=== PATIENT | female | born 1945 | race Caucasian/White ===

== ENCOUNTER 2017-12-08 01:53 | Outpatient (CLI) | payer OTHER, SELFPAY ==
[2017-12-08 11:27] LABS: Hemoglobin A1C 6.7 % (4.5-6.2)
[2017-12-08 12:24] LABS: CREATININE 1.34 mg/dL (0.55-1.02); Estimated GFR 38.77 (mL/min/1.73m2)
== END 2017-12-08 02:13 ==
PROVIDERS: PCP Family Medicine; Visit Provider Family Medicine
DX: E11.9 Type 2 diabetes mellitus without complications (principal)
CPT/HCPCS: 36415; 82565; 83036

== ENCOUNTER 2018-01-17 10:34 | Outpatient (CLI) | payer OTHER, SELFPAY ==
--- NOTE | 2018-01-17 10:30 | DI.RAD_ITS ---
SYMPTOMS/DIAGNOSIS: PAIN AND DEFORMITY TO RRF AND RMF RIGHT HAND: Three views. There is a mildly displaced and mildly comminuted fracture involving the posterior aspect of the base of the distal phalanx of the right ring finger. There is a nondisplaced fracture involving the volar aspect of the base of the middle phalanx of the right middle finger. There is soft tissue swelling seen of both the right middle and ring fingers. Mild degenerative changes are present throughout the right hand. No radiopaque foreign bodies are present in the soft tissues. IMPRESSION: Fractures involving the base of the distal phalanx of the right ring finger and the base of the middle phalanx of the right middle finger.
== END 2018-01-17 10:54 ==
PROVIDERS: PCP Family Medicine; Referring Provider Family Medicine; Visit Provider Student in an Organized Health Care Education/Training Program
DX: M79.644 Pain in right finger(s) (principal); M79.641 Pain in right hand; M20.011 Mallet finger of right finger(s); S62.634A Displaced fracture of distal phalanx of right ring finger, initial encounter for closed fracture; S62.662A Nondisplaced fracture of distal phalanx of right middle finger, initial encounter for closed fracture; W01.0XXA Fall on same level from slipping, tripping and stumbling without subsequent striking against object, initial encounter; I10 Essential (primary) hypertension; E11.319 Type 2 diabetes mellitus with unspecified diabetic retinopathy without macular edema; Z79.84 Long term (current) use of oral hypoglycemic drugs
CPT/HCPCS: 99203; 99214; 73130

== ENCOUNTER → 2018-02-21 09:03 | Outpatient (BNVA) | payer OTHER, SELFPAY | PROVIDERS: PCP Family Medicine; Referring Provider Family Medicine; Visit Provider Student in an Organized Health Care Education/Training Program | DX: M20.011 Mallet finger of right finger(s) (principal); S62.652D Nondisplaced fracture of middle phalanx of right middle finger, subsequent encounter for fracture with routine healing; W01.0XXD Fall on same level from slipping, tripping and stumbling without subsequent striking against object, subsequent encounter; S62.634D Displaced fracture of distal phalanx of right ring finger, subsequent encounter for fracture with routine healing; M67.442 Ganglion, left hand; I10 Essential (primary) hypertension; E11.319 Type 2 diabetes mellitus with unspecified diabetic retinopathy without macular edema; Z79.84 Long term (current) use of oral hypoglycemic drugs | CPT/HCPCS: 99214 ==

== ENCOUNTER 2018-06-07 01:33 | Outpatient (CLI) | payer OTHER, SELFPAY ==
[2018-06-07 11:19] LABS: Hemoglobin A1C 6.9 % (4.5-6.2)
== END 2018-06-07 01:53 ==
PROVIDERS: PCP Family Medicine; Visit Provider Family Medicine
DX: E11.9 Type 2 diabetes mellitus without complications (principal)
CPT/HCPCS: 36415; 83036

== ENCOUNTER 2018-08-08 00:17 | Outpatient (CLI) | payer OTHER, SELFPAY ==
--- NOTE | 2018-08-08 13:27 | DI.MAMMO_ITS ---
SYMPTOMS/DIAGNOSIS: SCREENING, Z12.31 MAMMOGRAMS: The breast tissue is composed of scattered fibroglandular densities. There is no dominant mass. There are no suspicious calcifications and there has been no significant interval change when compared with prior images. SUMMARY: No evidence of malignancy, category 1. Yearly screening mammography is recommended. Breast density category B. MQSA ASSESSMENT OF FINDINGS: Negative. Category 1. Patient will receive a letter notifying them of these results. BI-RADS category B. There are scattered areas of fibroglandular density.
== END 2018-08-08 00:37 ==
PROVIDERS: PCP Family Medicine; Visit Provider Family Medicine
DX: Z12.31 Encounter for screening mammogram for malignant neoplasm of breast (principal)
CPT/HCPCS: 77063; 77067

== ENCOUNTER 2018-12-04 02:44 | Outpatient (CLI) | payer OTHER, SELFPAY ==
[2018-12-04 11:04] LABS: CREATININE 1.49 mg/dL (0.55-1.02); Calculated LDL 68 mg/dL; Cholesterol 139 mg/dL (50-200); Estimated GFR 34.21 (mL/min/1.73m2); HDL Cholesterol 52 mg/dL (40-60); Potassium 4.9 mmol/L (3.5-5.1); Triglyceride 97 mg/dL (30-150)
== END 2018-12-04 03:04 ==
PROVIDERS: PCP Family Medicine; Visit Provider Family Medicine
DX: E11.9 Type 2 diabetes mellitus without complications (principal)
CPT/HCPCS: 36415; 80061; 82565; 83036; 84132

== ENCOUNTER 2019-12-12 01:19 | Outpatient (CLI) | payer OTHER, SELFPAY ==
[2019-12-12 12:31] LABS: Hemoglobin A1C 6.7 % (<5.7)
[2019-12-12 13:55] LABS: COMMENT (LAB VIEW ONLY) 85.32 mg/dL; Microalb ug/mg Crea 17.6 ug/mg Cr
== END 2019-12-12 01:39 ==
PROVIDERS: PCP Family Medicine; Visit Provider Family Medicine
DX: E11.9 Type 2 diabetes mellitus without complications (principal)
CPT/HCPCS: 36415; 82043; 82570; 83036

== ENCOUNTER 2020-06-12 00:39 | Outpatient (CLI) | payer OTHER, SELFPAY ==
[2020-06-12 13:11] LABS: Hemoglobin A1C 6.8 % (<5.7)
[2020-06-12 13:15] LABS: CREATININE 1.5 mg/dL (0.55-1.02); Calculated LDL 51 mg/dL (<100); Cholesterol 132 mg/dL (<200); Estimated GFR 33.76 (mL/min/1.73m2); HDL Cholesterol 56 mg/dL (40-60); Potassium 5.3 mmol/L (3.5-5.1); Triglyceride 127 mg/dL (<150)
== END 2020-06-12 00:40 | disposition home or self-care (01) ==
LOC: LOS 00:40
PROVIDERS: PCP Family Medicine; Visit Provider Family Medicine
DX: I10 Essential (primary) hypertension (principal); E78.5 Hyperlipidemia, unspecified; R73.9 Hyperglycemia, unspecified
CPT/HCPCS: 36415; 80061; 82565; 83036; 84132

== ENCOUNTER 2020-06-18 02:04 | Outpatient (CLI) | payer OTHER, SELFPAY | END 2020-06-18 02:05 | disposition home or self-care (01) | PROVIDERS: PCP Family Medicine; Visit Provider Family Medicine | DX: E87.5 Hyperkalemia (principal) | CPT/HCPCS: 36415; 84132 ==

== ENCOUNTER 2020-07-09 03:04 | Outpatient (CLI) | payer OTHER, SELFPAY ==
[2020-07-09 12:16] LABS: Potassium 5.1 mmol/L (3.5-5.1)
== END 2020-07-09 03:05 | disposition home or self-care (01) ==
LOC: LOS 03:04
PROVIDERS: PCP Family Medicine; Visit Provider Family Medicine
DX: I10 Essential (primary) hypertension (principal)
CPT/HCPCS: 36415; 84132

== ENCOUNTER 2020-08-17 03:07 | Outpatient (CLI) | payer OTHER, SELFPAY ==
[2020-08-17 12:44] LABS: Potassium 4.9 mmol/L (3.5-5.1)
== END 2020-08-17 03:08 | disposition home or self-care (01) ==
LOC: LOS 03:08
PROVIDERS: PCP Family Medicine; Visit Provider Family Medicine
DX: I10 Essential (primary) hypertension (principal)
CPT/HCPCS: 36415; 84132

== ENCOUNTER 2020-09-08 02:32 | Outpatient (CLI) | payer OTHER, SELFPAY ==
--- NOTE | 2020-09-08 15:45 | DI.MAMMO_ITS ---
Exam(s) MAMMO SCREENING EXAM: MAMMO SCREENING CLINICAL HISTORY: screening,Z12.39. TECHNIQUE: Bilateral full field digital CC and MLO mammographic images were obtained with 3D tomosyn thesis and utilizing computer aided detection (CAD). COMPARISON: Prior mammograms dating back to 2011, the most recent being August 2018. Family history. She has a sister with breast cancer. FINDINGS: There are no new spiculated masses nor malignant appearing microcalcification groups. However, in the left breast there is a subtle 7 x 6 millimeter nodule located 4 cm in from the nipple which has slightly increased in size compared to prior mammograms. Spot compression view possible u ltrasound recommend. There is no significant architectural distortion nor skin thickening-retraction. IMPRESSION: No radiographic evidence of malignancy in the right breast. In the left breast there is a subtle 7 x 6 millimeter asymmetric density-possible nodule located 4 cm in from the nipple probably 12 o'clock position, slightly more prominent in size than previous studi es. Recommend spot compression view and possible breast ultrasound. BI-RADS Category 0 - Assessment Incomplete: Need additional imaging evaluation Breast Density - Category B - Scattered areas of fibroglandular density Breast density Category C or D implies that the patient has dense breast tissue. Dense breast tissue can make it harder to find cancer on a mammogram. Dense breast tissue is also associated with an incr eased risk of breast cancer. This information about the result of the mammogram report was provided to the patient to raise their awareness. Use this report when you speak with the patient about their risks for breast cancer, which includes their family history. At that time, you may recommend additional screening tests (Ultrasoun d or MRI) as these tests may add significant information. A negative radiographic report should not delay biopsy if a dominant or clinically suspicious mass is present. Up to ten percent of cancers are not identified on mammography. A negative report may reinforce clinical impression. Adenosis and dense breasts may obscure an underlying neoplasm. False positive reports average 6 to 10%. Patient will receive a letter notifying them of these results.
== END 2020-09-08 02:52 ==
PROVIDERS: PCP Family Medicine; Visit Provider Family Medicine
DX: Z12.31 Encounter for screening mammogram for malignant neoplasm of breast (principal); R92.8 Other abnormal and inconclusive findings on diagnostic imaging of breast; Z80.3 Family history of malignant neoplasm of breast
CPT/HCPCS: 77063; 77067

== ENCOUNTER 2020-09-30 01:23 | Outpatient (CLI) | payer OTHER, SELFPAY ==
--- NOTE | 2020-09-30 | DI.MAMMO_ITS ---
Exam(s) MAMMO SCREEN CALL BACK UNI EXAM: MAMMO SCREEN CALL BACK UNI-LEFT CLINICAL HISTORY: F/U TO ABNL MAMMO, ASYMMETRIC DENSITY LT. TECHNIQUE: Unilateral spot mammographic images were obtained with 3D tomosynthesis and utilizing com puter aided detection (CAD). . Complete left breast Ultrasound was also performed, including all 4 quadrants, the retroareolar regio n, and the ipsilateral axilla. COMPARISON: Prior mammograms were reviewed. This additional imaging was performed due to findings described on the recent screening mammogram of 09/08/2020. FINDINGS: Additional mammographic views performed todaysomewhat equivocal for the presence nodule at this locat ion in left breast. Ultrasound performed today reveals no significant focal ultrasound findings.. IMPRESSION: Benign findings. Appropriate follow-up repeat left breast mammogram in 6 months, with earlier imaging if a self detect ed breast change is noted. The patient was informed of these findings and recommendations prior to leaving the department today. BI-RADS Category 3 - 6 month - Probably Benign Finding: Recommend follow-up mammography in 6 months Breast Density - Category B - Scattered areas of fibroglandular density Breast density Category C or D implies that the patient has dense breast tissue. Dense breast tissue can make it harder to find cancer on a mammogram. Dense breast tissue is also associated with an incr eased risk of breast cancer. This information about the result of the mammogram report was provided to the patient to raise their awareness. Use this report when you speak with the patient about their risks for breast cancer, which includes their family history. At that time, you may recommend additional screening tests (Ultrasoun d or MRI) as these tests may add significant information. A negative radiographic report should not delay biopsy if a dominant or clinically suspicious mass is present. Up to ten percent of cancers are not identified on mammography. A negative report may reinforce clinical impression. Adenosis and dense breasts may obscure an underlying neoplasm. False positive reports average 6 to 10%. Patient will receive a letter notifying them of these results.
--- NOTE | 2020-09-30 | DI.US_ITS ---
Exam(s) US BREAST LT COMPLETE EXAM: US BREAST LT COMPLETE CLINICAL HISTORY: F/U ABNL MAMMO, ASYMMETRIC DENSITY LT BREAST. TECHNIQUE: Complete ultrasound of the left breast was performed including all 4 quadrants, the retro areolar region, and the ipsilateral axilla. COMPARISON: Prior mammograms were reviewed. Today's diagnostic left breast mammogram was reviewed FINDINGS: Today's ultrasound is a negative study with no evidence of solid or significant cystic lesions in all 4 quadrants of the left breast nor in the immediate retroareolar region. This implies that the nodu lar density seen 4 cm in from the nipple is probably a benign intramammary lymph node. Left axilla is negative for significant adenopathy. IMPRESSION: Negative complete left breast ultrasound. This implies that the nodular density described on the rec ent mammogram is most probably a benign finding. Appropriate follow-up is repeat left breast Mammogram in 6 months, with earlier imaging if a self det ected breast changes noted.. BI-RADS Category 3 - 6 month - Probably Benign Finding: Recommend follow-up mammography in 6 months Breast Density - Category B - Scattered areas of fibroglandular density Breast density Category C or D implies that the patient has dense breast tissue. Dense breast tissue can make it harder to find cancer on a mammogram. Dense breast tissue is also associated with an incr eased risk of breast cancer. This information about the result of the mammogram report was provided to the patient to raise their awareness. Use this report when you speak with the patient about their risks for breast cancer, which includes their family history. At that time, you may recommend additional screening tests (Ultrasoun d or MRI) as these tests may add significant information. A negative radiographic report should not delay biopsy if a dominant or clinically suspicious mass is present. Up to ten percent of cancers are not identified on mammography. A negative report may reinforce clinical impression. Adenosis and dense breasts may obscure an underlying neoplasm. False positive reports average 6 to 10%. Patient will receive a letter notifying them of these results.
== END 2020-09-30 01:43 ==
PROVIDERS: PCP Family Medicine; Visit Provider Family Medicine
DX: R92.8 Other abnormal and inconclusive findings on diagnostic imaging of breast (principal); N64.89 Other specified disorders of breast
CPT/HCPCS: 76642; 77063; 77067

== ENCOUNTER 2021-03-05 04:37 | Outpatient (CLI) | payer MEDICARE, SELFPAY ==
[2021-03-05 12:45] LABS: CREATININE 1.3 mg/dL (0.55-1.02); Estimated GFR 39.82 (mL/min/1.73m2); Potassium 4.6 mmol/L (3.5-5.1)
== END 2021-03-05 04:38 | disposition home or self-care (01) ==
LOC: LBO 04:37
PROVIDERS: PCP Family Medicine; Visit Provider Family Medicine
DX: I10 Essential (primary) hypertension (principal)
CPT/HCPCS: 36415; 82565; 84132

== ENCOUNTER 2021-04-05 01:01 | Outpatient (CLI) | payer MEDICARE, SELFPAY ==
--- NOTE | 2021-04-05 07:15 | DI.MAMMO_ITS ---
Exam(s) MAMMO DIAGNOSTIC UNI EXAM: MAMMO DIAGNOSTIC UNI CLINICAL HISTORY: f/u abnl mammo, r92.8. TECHNIQUE: Craniocaudal and mediolateral oblique Full Field Digital Mammography views of the breast with Computer Aided Diagnosis followed by Tomosynthesis. COMPARISON: Mammograms from 25/01 through 30 September 2020 FINDINGS: Mammography/Tomosynthesis: Masses/Architectural Distortion: None seen. Decreased prominence of nodule in the superior, central l eft breast. This has been present on multiple exams and likely represents a lymph node. Microcalcifictions: No suspicious pleomorphic-type are seen. Skin Thickening/Nipple Retraction: None. IMPRESSION: 1. No evidence of malignancy is noted. 2. Unless there is more urgent need, follow-up screening mammography is recommended, as per [place] [employer] guidelines. BI-RADS Category 1 - Negative Breast Density - Category B - Scattered areas of fibroglandular density A negative radiographic report should not delay biopsy if a dominant or clinically suspicious mass is present. Up to ten percent of cancers are not identified on mammography. A negative report may reinforce clinical impression. Adenosis and dense breasts may obscure an underlying neoplasm. False positive reports average 6 to 10%. Patient will receive a letter notifying them of these results.
== END 2021-04-05 01:21 ==
PROVIDERS: PCP Family Medicine; Visit Provider Family Medicine
DX: R92.8 Other abnormal and inconclusive findings on diagnostic imaging of breast (principal); N60.82 Other benign mammary dysplasias of left breast
CPT/HCPCS: 77061; 77065; G0279

== ENCOUNTER 2022-03-01 13:08 | Outpatient (REF) | payer MEDICARE, SELFPAY ==
[2022-03-01 13:00] LABS: Microalb ug/mg Crea 21.8 ug/mg Cr
== END 2022-03-01 13:09 | disposition home or self-care (01) ==
LOC: LBN 13:08
PROVIDERS: PCP Family Medicine; Visit Provider Family Medicine
DX: E11.9 Type 2 diabetes mellitus without complications (principal)
CPT/HCPCS: 82043; 82570

== ENCOUNTER 2022-08-30 09:49 | Outpatient (CLI) | payer MEDICARE, SELFPAY ==
[2022-08-30 13:07] LABS: CREATININE 1.5 mg/dL (0.55-1.02); Calculated LDL 66 mg/dL (<100); Cholesterol 150 mg/dL (<200); Estimated GFR 35.45 (mL/min/1.73m2); HDL Cholesterol 59 mg/dL (40-60); Potassium 4.2 mmol/L (3.5-5.1); Triglyceride 129 mg/dL (<150)
== END 2022-08-30 09:50 | disposition home or self-care (01) ==
LOC: LOS 09:50
PROVIDERS: PCP Family Medicine; Referring Provider Family Medicine; Visit Provider Family Medicine
DX: I10 Essential (primary) hypertension (principal); E78.5 Hyperlipidemia, unspecified; E11.9 Type 2 diabetes mellitus without complications
CPT/HCPCS: 36415; 80061; 82565; 84132

== ENCOUNTER 2022-09-05 01:08 | Outpatient (CLI) | payer MEDICARE, SELFPAY ==
--- NOTE | 2022-09-05 12:59 | DI.MAMMO_ITS ---
Exam(s) MAMMO SCREENING EXAM: MAMMO SCREENING CLINICAL HISTORY: screening, Z12.39. TECHNIQUE: Bilateral full field digital CC and MLO mammographic images were obtained with 3D tomosyn thesis and utilizing computer aided detection (CAD). COMPARISON: Prior mammograms were reviewed. FINDINGS: There has been no significant change in the appearance and distribution of the fibroglandular tissue. Asymmetric density in left breast is unchanged from prior studies. There are no new spiculated masses nor malignant appearing microcalcification groups. There is no significant architectural distortion nor skin thickening-retraction. IMPRESSION: No radiographic evidence of malignancy. BI-RADS Category 1 - Negative Breast Density - Category B - Scattered areas of fibroglandular density Breast density Category C or D implies that the patient has dense breast tissue. Dense breast tissue can make it harder to find cancer on a mammogram. Dense breast tissue is also associated with an incr eased risk of breast cancer. This information about the result of the mammogram report was provided to the patient to raise their awareness. Use this report when you speak with the patient about their risks for breast cancer, which includes their family history. At that time, you may recommend additional screening tests (Ultrasoun d or MRI) as these tests may add significant information. A negative radiographic report should not delay biopsy if a dominant or clinically suspicious mass is present. Up to ten percent of cancers are not identified on mammography. A negative report may reinforce clinical impression. Adenosis and dense breasts may obscure an underlying neoplasm. False positive reports average 6 to 10%. Patient will receive a letter notifying them of these results.
== END 2022-09-05 01:28 ==
LOC: DI 01:08
PROVIDERS: PCP Family Medicine; Visit Provider Family Medicine
DX: Z12.31 Encounter for screening mammogram for malignant neoplasm of breast (principal)
CPT/HCPCS: 77063; 77067

== ENCOUNTER → 2023-05-25 13:25 | Outpatient (BNVA) | payer MEDICARE, SELFPAY | PROVIDERS: PCP Family Medicine; Referring Provider Family Medicine; Visit Provider Physical Therapy Assistant | DX: Z12.11 Encounter for screening for malignant neoplasm of colon (principal); R19.5 Other fecal abnormalities ==

== ENCOUNTER 2023-09-12 09:41 | Outpatient (CLI) | payer MEDICARE, SELFPAY ==
[2023-09-12 13:02] LABS: CREATININE 1.5 mg/dL (0.55-1.02); Calculated LDL 74 mg/dL (<100); Cholesterol 162 mg/dL (<200); Estimated GFR 35.23 (mL/min/1.73m2); HDL Cholesterol 67 mg/dL (40-60); Potassium 4.6 mmol/L (3.5-5.1); Triglyceride 107 mg/dL (<150)
[2023-09-12 18:46] LABS: Hepatitis C Ab w Rflx HCV PCR Negative (Negative)
[2023-09-12 18:52] LABS: HBs Antibody, Quant <3.1 mIU/mL (See Note); Hep B Surface Ab Negative (See Note); Hepatitis B Core Antibody Negative (Negative); Hepatitis B Surface Antigen Negative (Negative)
[2023-09-12 19:14] LABS: HIV-1/2 Ag & Ab Screen Negative (Negative)
== END 2023-09-12 09:42 | disposition home or self-care (01) ==
LOC: LOS 09:41
PROVIDERS: PCP Family Medicine; Referring Provider Family Medicine; Visit Provider Family Medicine
DX: I10 Essential (primary) hypertension (principal); Z00.00 Encounter for general adult medical examination without abnormal findings; E78.5 Hyperlipidemia, unspecified; Z11.59 Encounter for screening for other viral diseases
CPT/HCPCS: 36415; 80061; 86704; 86706; 86803; 87340; 87389; 82565; 84132

== ENCOUNTER 2023-09-15 00:19 | Outpatient (CLI) | payer MEDICARE, SELFPAY ==
--- OUTSIDE RECORDS SUMMARY | 2023-09-15 00:21 | XMS_ITS | Encounter Summary ---
Author Organization [facility] Address [address] [place] [address] Care Team Providers Care Supervisor Slate Splitting Name Role Phone Unavailable Primary Care Provider Unavailabl e Encounter Details Date Type Department Care Team (Latest Contact Info) Description 09/09/2013 8:18 EDT - 09/09/2013 23:59 EDT Hospital Encounter [address] [address] Unknown, Provider, Discharge Disposition: Home or Self Care Social History Tobacco Use Types Packs/Day Years Used Date Smoking Tobacco: Never Assessed Sex and Gender Information Value Date Recorded Sex Assigned at Not on file Gender Identity Not on file Sexual Orientation Not on file documented as of this encounter Discharge Disposition Disposition Code Departure Means Destination Home or Self Assisted documented in this encounter Plan of Treatment Not on file documented as of this encounter Visit Diagnoses Not on filedocumented in this encounter
--- OUTSIDE RECORDS SUMMARY | 2023-09-15 00:21 | XMS_ITS | Encounter Summary ---
Author Organization [facility] Address [address] [place] [address] Care Team Providers Care Application Counselor Name Role Phone Buzz John MD Primary Care Provider [phone] Encounter Details Date Type Department Care Team (Late st Contact Info) Description 09/12/2023 Lab Requisition [facility] Pathology & Laboratory Medicine - [address] [address] Outr Resulting Lab, Provider Social History Tobacco Use Types Packs/Day Years Used Date Smoking Tobacco: Never Assessed Sex and Gender Information Value Date Recorded Sex Assigned at Not on file Gender Identity Not on file Sexual Orientation Not on file documented as of this encounter Plan of Treatment Not on file documented as of this encounter Procedures Procedure Name Priority Date/Time Associated Diagnosis Comments HEPATITIS C AB W REFLEX TO HCV RNA BY PCR Routine 09/12/2023 9:57 EDT HEPATITIS B PROFILE Routine 09/12/2023 9:57 EDT documented in this encounter Results * HEPATITIS C AB W REFLEX TO HCV RNA BY PCR (09/12/2023 9:57 EDT) Hep C Antibody Negative Negative 09/12/2023 18:42 EDT [facility] Blood VENOUS BLOOD / Unknown 09/12/2023 9:57 EDT 09/12/2023 16:56 EDT Provider Outr Resulting Lab CHEMISTRY & BLOOD GAS ORDERABLES [facility] [address] [place] [address] * HEPATITIS B PROFILE (09/12/2023 9:57 EDT) Hep B Surface Ag Negative Negative 09/12/19 18:48 EDT [facility] Hep B Surface Ab, Quantitative <3.1 See Note mIU/mL 09/12/2023 18:48 EDT [facility] Comment: Reference Range for Hep B Surface Ab, Quant: Positive: >= 10.0 mIU/mL Negative: ??< 10.0 mIU/mL Patient is presumed to not be immune to infection with Hepatitis B Virus. Hep B Surface Ab, Qualitative Negative See Note 09/12/2023 18:48 EDT [facility] Comment: Reference Range for Hep B Surface Ab, Qual: Unvaccinated: ??Negative Vaccinated: ??Positive Hepatitis B Core Ab, Total Negative Negative 09/12/2023 18:48 EDT [facility] Blood VENOUS BLOOD / Unknown 09/12/2023 9:57 EDT 09/12/2023 16:56 EDT Provider Outr Resulting Lab CHEMISTRY & BLOOD GAS ORDERABLES [facility] [address] [place] [address] documented in this encounter Visit Diagnoses Not on filedocumented in this encounter Care Teams Application Counselor Relationship Specialty Start Date End Date Buzz John MD [address] [place] [address] PCP - General 08/13/15 documented as of this encounter
--- OUTSIDE RECORDS SUMMARY | 2023-09-15 00:21 | XMS_ITS | Encounter Summary ---
Author Organization [facility] Address [address] [place] [address] Care Team Providers Care Agricultural Consultant Name Role Phone Unknown, Provider Primary Care Provider Encounter Details Date Type Department Care Team (Latest Contact Info) Description 08/07/2015 9:40 EDT - 08/07/2015 23:59 EDT Hospital Encounter [address] [address] Unknown, Provider, Discharge Disposition: Home or Self Care Social History Tobacco Use Types Packs/Day Years Used Date Smoking Tobacco: Never Assessed Sex and Gender Information Value Date Recorded Sex Assigned at Not on file Gender Identity Not on file Sexual Orientation Not on file documented as of this encounter Discharge Disposition Disposition Code Departure Means Destination Home or Self Nursing Home documented in this encounter Plan of Treatment Not on file documented as of this encounter Visit Diagnoses Not on filedocumented in this encounter Care Teams Agricultural Consultant Relationship Specialty Start Date End Date Unknown, Provider, PCP - General 09/12/13 08/12/15 documented as of this encounter
--- OUTSIDE RECORDS SUMMARY | 2023-09-15 00:21 | XMS_ITS | Encounter Summary ---
Author Organization [facility] Address [address] [place] [address] Care Team Providers Care Library Circulation Technician Name Role Phone Buzz John MD Primary Care Provider [phone] Encounter Details Date Type Department Care Team (Late st Contact Info) Description 09/12/2023 Lab Requisition [facility] Pathology & Laboratory Medicine - [address] [id number] Outr Resulting Lab, Provider Social History Tobacco [...] Procedure Name Priority Date/Time Associated Diagnosis Comments HIV 1/2 ANTIGEN AND ANTIBODY, 4TH GENERATION Routine 09/12/2023 9:57 EDT documented in this encounter Results * HIV 1/2 ANTIGEN AND ANTIBODY, 4TH GENERATION (09/12/2023 9:57 EDT) HIV 1 and 2 Antibody/p24 Antigen, 4th Generation Negative Negative 09/12/2023 19:09 EDT [facility] Comment:If acute HIV-1 infec tion is suspected in a high risk patient, submit plasma specimen for HIV-1 RNA quantitation test. Blood VENOUS BLOOD / Unknown 09/12/2023 9:57 EDT 09/12/2023 16:56 EDT Narrative [facility] - 09/12/2023 19:09 EDT Fourth Generation assay performed on the Siemens Centaur XPT. Provider Outr Resulting Lab IMMUNOLOGY A ND SEROLOGY ORDERABLES [facility] [address] [place] [address] documented in this encounter Visit Diagnoses Not on filedocumented in this encounter Care Teams Library Circulation Technician Relationship Specialty Start Date End Date Buzz John MD [address] [place] [id number] PCP - General 08/13/15 documented as of this encounter
--- OUTSIDE RECORDS SUMMARY | 2023-09-15 00:21 | XMS_ITS | Clinical Summary ---
Author Organization [facility] Address [address] [place] [address] Care Team Providers Care Manager Acquisition Name Role Phone Buzz John MD Primary Care Provider [phone] Encounters Date Type Department Care Team Description 09/12/[address] [facility] Pathology & Laboratory [address] [address] Outr Resulting Lab, Provider 09/12/[address] [facility] Pathology & Laboratory [address] [address] Outr Resulting Lab, Provider from Last 3 Months Social History Tobacco Use Types Packs/Day Years Used Date Smoking Tobacco: Never Assessed Sex and Gender Information Value Date Recorded Sex Assigned at Not on file Gender Identity Not on file Sexual Orientation Not on file Plan of Treatment Health Maintenance Due Date Last Done Comments RSV Immunization ( o r 60+ Years) (1 - 1-dose 60+ series) 2004 Fall Risk Screening 2009 COVID-19 Vaccine (2022-24 season) 2022 Hepatitis C Screen Completed 09/12/2023 Procedures Procedure Name Priority Date/Time Associated Diagnosis Comments HEPATITIS C AB W REFLEX TO HCV RNA BY PCR Routine 09/12/2023 9:57 EDT HEPATITIS B PROFILE Routine 09/12/2023 9 :57 EDT HIV 1/2 ANTIGEN AND ANTIBODY, 4TH GENERATION Routine 09/12/2023 9:57 EDT from Last 3 Months Results * HEPATITIS C AB W REFLEX TO HCV RNA BY PCR (09/12/2023 9:57 EDT) Hep C Antibody Negative Negative 09/12/2023 18:42 EDT [facility] Blood VENOUS BLOOD / Unknown 09/12/2023 9:57 EDT 09/12/2023 16:56 EDT Provider Outr Resulting Lab CHEMISTRY & BLOOD GAS ORDERABLES Performing Organization Address City/[facility]/ZIP Co de Phone Number [facility] [address] [place] [address] * HEPATITIS B PROFILE (09/12/2023 9:57 EDT) Pathologist [facility] [place] Hep B Surface Ag Negative Negative 09/12/19 18:48 EDT [facility] Hep B Surface Ab, Quantitative <3.1 See Note mIU/mL 09/12/2023 18:48 EDT [facility] Comment: Reference Range for Hep B Surface Ab, Quant: Positive: >= 10.0 mIU/mL Negative: ??< 10.0 mIU/mL Patient is presumed to not be immune to infection with Hepatitis B Virus. Hep B Surface Ab, Qualitative Negative See Note 09/12/2023 18:48 EDT [facility] Comment: Reference Range for Hep B Surface Ab, Qual: Unvaccinated: ??Negative Vaccinated: ??Positive Hepatitis B Core Ab, Total Negative Negative 09/12/2023 18:48 EDT [facility] Blood VENOUS BLOOD / Unknown 09/12/2023 9:57 EDT 09/12/2023 16:56 EDT Provider Outr Resulting Lab CHEMISTRY & BLOOD GAS ORDERABLES Performing Organization Address [facility]/ZIP Co de Phone Number [facility] [address] [place] [address] * HIV 1/2 ANTIGEN AND ANTIBODY, 4TH GENERATION (09/12/2023 9:57 EDT) Pathologist [facility] [place] HIV 1 and 2 Antibody/p24 Antigen, 4th Generation Negative Negative 09/12/2023 19:09 EDT [facility] Comment:If acute HIV-1 infec tion is suspected in a high risk patient, submit plasma specimen for HIV-1 RNA quantitation test. Blood VENOUS BLOOD / Unknown 09/12/2023 9:57 EDT 09/12/2023 16:56 EDT Narrative [facility] - 09/12/2023 19:09 EDT Fourth Generation assay performed on the Siemens Centaur XPT. Provider Outr Resulting Lab IMMUNOLOGY A ND SEROLOGY ORDERABLES [facility] [address] [place] [address] from Last 3 Months Care Teams Manager Acquisition Relationship Specialty Start Date End Date Buzz John MD [address] [place], [place] [id number] PCP - General 08/13/15
--- OUTSIDE RECORDS SUMMARY | 2023-09-15 00:21 | XMS_ITS | Encounter Summary ---
Author Organization [facility] Address [address] [place] [address] Care Team Providers Care Bss Solution Architect Name Role Phone Unavailable Primary Care Provider Unavailabl e Encounter Details Date Type Department Care Team (Late st Contact Info) Description 09/09/2013 Results Only [facility] ([facility]) [address] [place] [address] [id number] Tarik Hoffmann MD [address] [place] [address] Social History Tobacco Use Types Packs/Day Years Used Date Smoking Tobacco: Never Assessed Sex and Gender Information Value Date Recorded Sex Assigned at Not on file Gender Identity Not on file Sexual Orientation Not on file documented as of this encounter Plan of Treatment Not on file documented as of this encounter Procedures Procedure Name Priority Date/Time Associated Diagnosis Comments SURGICAL PATHOLOGY Routine 09/09/2013 18 :28 EDT documented in this encounter Results * SURGICAL PATHOLOGY (09/09/2013 18:28 EDT) Pathology Report: SURGICAL PATHOLOGY REPORT Reports generated via electronic interface contain original data; however they are lacking the format of the original report. Caution should be taken when reading/interpreting unformatted reports. Name: ? SANDEEP BARTH ? Accession #: ? [id number] ? : ? 1945 (Age: 68) ??F ? Collect Date: ? 09/09/2013 ? Location: ? [facility] ? Receive Date: ? 09/09/2013 ? Provider: TARIK HOFFMANN MD Copy to: CHUN YING MD ? Final Pathologic Diagnosis: SKIN OF SCALP, FRONTAL, EXCISION: - Follicular cyst, isthmic/catagen type with reactive changes. See comment. Comment: ? This case was shown in intradepartmental consultation. Document reviewed and electronically signed by: ALBINA ARREDONDO MD Report ??Date: 09/13/2013 14:45 By the signature above, the attending physician certifies that he/she has personally conducted a gross and/or microscopic examination of the described specimens and rendered or confirmed the above diagnosis. Specimen(s) Received: Frontal scalp Clinical History: Cyst present 30-40 yrs Gross Description: ? Received in formalin labelled with proper patient identification (initials M, K) and frontal scalp lesion is a bosselated ruiz walled cystic structure (1.3 x 1.3 x 0.6 cm) with a small amount of attached fibrofatty tissue and an overlying ellipse of nuñez-white skin (1.7 x 0.4 cm). The cyst contains a firm nuñez granular material, and the inner lining is white and wrinkled with a wall thickness measuring less than 0.1 cm. The margins are inked. ??Serially sectioned and submitted as 1 and 2 central sections and 3 tips, reverse en face. Margarita Montez 09/10/2013 08:33 AM End of Report GRICELDA SINGH 09/09/2013 18:2 8 EDT 09/09/2013 18:28 EDT Tarik Hoffmann MD PATHOLOGY ORDERABLE S GRICELDA SINGH [address] [place] [address] documented in this encounter Visit Diagnoses Not on filedocumented in this encounter
--- OUTSIDE RECORDS SUMMARY | 2023-09-15 00:21 | XMS_ITS | Referral Summary ---
Author Organization [facility] Address [address] [place] [address] Care Team Providers Care Ocean Freight Forwarder Name Role Phone Buzz John MD Primary Care Provider [phone] Encounters Date Type Department Care Team Description 09/12/2023 Lab Requisition [facility] Pathology & Laboratory [address] [address] Outr Resulting Lab, Provider 09/12/2023 Lab Requisition [facility] Pathology & Laboratory [facility] [address] [place] [address] Outr Resulting Lab, Provider from Last 3 Months Social History Tobacco Use Types Packs/Day Years Used Date Smoking Tobacco: Never Assessed Sex and Gender Information Value Date Recorded Sex Assigned at Not on file Gender Identity Not on file Sexual Orientation Not on file Plan of Treatment Not on file Procedures Procedure Name Priority Date/Time Associated Diagnosis [...] C Antibody Negative Negative 09/12/2023 18:42 EDT [facility] Blood VENOUS BLOOD / Unknown 09/12/2023 9:57 EDT 09/12/2023 16:56 EDT Provider Outr Resulting Lab CHEMISTRY & BLOOD GAS ORDERABLES Performing Organization Address [facility] Co de Phone Number [facility] [address] [place] [address] * HEPATITIS B PROFILE (09/12/2023 9:57 EDT) Hep B Surface Ag Negative Negative 09/12/19 18:48 EDT [facility] Hep B Surface Ab, Quantitative <3.1 See Note mIU/mL 09/12/2023 18:48 EDT [facility] Comment: Reference Range for Hep B Surface Ab, Quant: Positive: >= 10.0 mIU/mL Negative: ??< 10.0 mIU/mL Patient is presumed to not be immune to infection with Hepatitis B Virus. Hep B Surface Ab, Qualitative Negative See Note 09/12/2023 18:48 EDT [facility] Comment: Reference Range for Hep B Surface Ab, Qual: Unvaccinated: ??Negative Vaccinated: ??Positive Hepatitis B Core Ab, Total Negative Negative 09/12/2023 18:48 EDT [facility] Blood VENOUS BLOOD / Unknown 09/12/2023 9:57 EDT 09/12/2023 16:56 EDT Provider Outr Resulting Lab CHEMISTRY & BLOOD GAS ORDERABLES Performing Organization Address [facility] Co de Phone Number [facility] [address] [place] [address] * HIV 1/2 ANTIGEN AND ANTIBODY, 4TH GENERATION (09/12/2023 9:57 EDT) HIV 1 and 2 Antibody/p24 Antigen, 4th Generation Negative Negative 09/12/2023 19:09 EDT [facility] Comment:If acute HIV-1 infec tion is suspected in a high risk patient, submit plasma specimen for HIV-1 RNA quantitation test. Blood VENOUS BLOOD / Unknown 09/12/2023 9:57 EDT 09/12/2023 16:56 EDT Narrative [facility] - 09/12/2023 19:09 EDT Fourth Generation assay performed on the Pump [employer] XPT. Provider Outr Resulting Lab IMMUNOLOGY A ND SEROLOGY ORDERABLES [facility] [address] [place] [address] from Last 3 Months Care Teams Ocean Freight Forwarder Relationship Specialty Start Date End Date Buzz John MD [address] [place], [place] [id number] PCP - General 08/13/15
--- OUTSIDE RECORDS SUMMARY | 2023-09-15 00:21 | XMS_ITS | Encounter Summary ---
Author Organization [facility] Address [address] [place] [address] Care Team Providers Care Ice Cream Shop Associate Name Role Phone Unknown, Provider Primary Care Provider Encounter Details Date Type Department Care Team (Late st Contact Info) Description 08/07/2015 Results Only [facility] [phone] Ac Dyer MD [address] [place] [address] [place] [id number] Social History Tobacco Use Types Packs/Day Years Used Date Smoking Tobacco: Never Assessed Sex and Gender Information Value Date Recorded Sex Assigned at Not on file Gender Identity Not on file Sexual Orientation Not on file documented as of this encounter Plan of Treatment Not on file documented as of this encounter Procedures Procedure Name Priority Date/Time Associated Diagnosis Comments SURGICAL PATHOLOGY Routine 08/07/2015 7:10 EDT documented in this encounter Results * SURGICAL PATHOLOGY (08/07/2015 7:10 EDT) Pathology Report: SURGICAL PATHOLOGY REPORT Reports generated via electronic interface contain original data; however they are lacking the format of the original report. Caution should be taken when reading/interpret ing unformatted reports. Name: ? SANDEEP MATHIAS ? Accession #: ? [id number] ? : ? 1945 (Age: 70) ??F ? Collect Date: ? 08/07/2015 ? Location: ? [facility] ? Receive Date: ? 08/08/2015 ? Provider: AC DYER MD Copy to: ILEANA PATEL MD ? Final Pathologic Diagnosis: SKIN OF FACE, LEFT, JUST ANTERIOR TO EAR, EXCISIONAL BIOPSY: - Seborrheic keratosis, irritated and inflamed. ?? - Lesion does not extend to margins of excision specimen. ?? Microscopic Description: Orthohyperkeratos is and focal parakeratosis thicken the stratum corneum. ??There is formation of horn pseudocysts. ??The epidermis is hyperplastic with acanthosis and papillomatosis. ??The keratinocytes have a basaloid appearance with squamous eddies in many areas. ??Within the dermis, there is a moderately dense lymphohistiocytic infiltrate. ??The infiltrate extends into the epidermis with concomitant vacuolar change and keratinocyte necrosis. ??(Dr. Cohen)/n Document reviewed and electronically signed by: JOLIE COHEN MD Report ??Date: 08/11/2015 17:23 By the signature above, the attending physician certifies that he/she has personally conducted a gross and/or microscopic examination of the described specimens and rendered or confirmed the above diagnosis. Specimen(s) Received: Lesion left face, just ant to ear, suture superior corner Clinical History: Left face lesion, just ant to ear Gross Description: ? Received in formalin labelled with proper patient identification (initials M, K) and left face lesion, suture superior corner is an oriented elliptical excision of nuñez-pink hairbearing skin with a suture designating the superior corner (1.3 cm from superior to inferior, 0.7 cm from medial to lateral, and is excised to a depth of 0.3 cm). There is a circular ill defined nuñez-pink verrucoid papule that measures 0.5 x 0.4 x 0.1 cm. The medial aspect is blue inked and the lateral aspect is black inked. The specimen is serially sectioned from superior to inferior and is entirely submitted as follows: BLOCK SAMPSON 1- ??superior tip, reverse en face 2- ??central sections 3- ??inferior tip, reverse en face Dr. Ramirez 08/08/2015 11:25 AM End of Report [facility] 08/07/2015 7:10 EDT 08/08/2015 7:10 EDT Ac Dyer MD PATHOLOGY ORDERA KARLA [facility] [address] [place] [address] documented in this encounter Visit Diagnoses Not on filedocumented in this encounter Care Teams Ice Cream Shop Associate Relationship Specialty Start Date End Date Unknown, Provider, PCP - General 09/12/13 08/12/15 documented as of this encounter
--- NOTE | 2023-09-15 08:12 | DI.MAMMO_ITS ---
Exam(s) MAMMO SCREENING EXAM: MAMMO SCREENING CLINICAL HISTORY: screening,z12.39. TECHNIQUE: Bilateral full field digital CC and MLO mammographic images were obtained with 3D tomosyn thesis and utilizing computer aided detection (CAD). COMPARISON: Prior mammograms were reviewed. FINDINGS: There has been no significant change in the appearance and distribution of the fibroglandular tissue. Asymmetric density anterior left breast is unchanged from prior mammograms dating back to 2015. Benign-appearing microcalcifications again noted in both breasts. There are no new spiculated masses nor new malignant appearing microcalcification groups. There is no significant architectural distortion nor skin thickening-retraction. IMPRESSION: Stable benign findings. No radiographic evidence of malignancy. BI-RADS Category 2 - Benign Findings Breast Density - Category B - Scattered areas of fibroglandular density Breast density Category C or D implies that the patient has dense breast tissue. Dense breast tissue can make it harder to find cancer on a mammogram. Dense breast tissue is also associated with an incr eased risk of breast cancer. This information about the result of the mammogram report was provided to the patient to raise their awareness. Use this report when you speak with the patient about their risks for breast cancer, which includes their family history. At that time, you may recommend additional screening tests (Ultrasoun d or MRI) as these tests may add significant information. A negative radiographic report should not delay biopsy if a dominant or clinically suspicious mass is present. Up to ten percent of cancers are not identified on mammography. A negative report may reinforce clinical impression. Adenosis and dense breasts may obscure an underlying neoplasm. False positive reports average 6 to 10%. Patient will receive a letter notifying them of these results.
== END 2023-09-15 00:39 ==
LOC: DI 00:19
PROVIDERS: PCP Family Medicine; Visit Provider Family Medicine
DX: Z12.31 Encounter for screening mammogram for malignant neoplasm of breast (principal)
CPT/HCPCS: 77063; 77067

== ENCOUNTER 2023-12-04 21:44 | Outpatient (REF) | payer MEDICARE, SELFPAY ==
[2023-12-04 19:32] LABS: Bilirubin Negative (Negative); Blood Trace-intact (Negative); Clarity Cloudy (Clear); Glucose Negative (Negative); Ketones Negative (Negative); Leukocyte Esterase Moderate (Negative); Nitrite Positive (Negative); Urobilinogen 0.2 mg/dL (Up to 0.2)
[2023-12-04 19:44] LABS: C & S Indicated? Yes; WBC >50 HPF (0-5)
== END 2023-12-04 21:45 | disposition home or self-care (01) ==
LOC: LBN 21:44
PROVIDERS: Nurse Practitioner Family; PCP Family Medicine; Visit Provider Family Medicine
DX: N39.0 Urinary tract infection, site not specified (principal)
CPT/HCPCS: 87077; 81003; 81015; 87086; 87186

== ENCOUNTER 2024-04-01 21:21 | Observation (INO) | payer MEDICARE, SELFPAY ==
[2024-04-01] VITALS (13 sets, daily range): BP systolic 137; BP diastolic 70; PULSE 58–79; RESP 5–29; TEMP 35.7; O2SAT 97–100
--- NOTE | 2024-04-01 21:15 | RT.EKG_ITS ---
APPROVED REPORT Exam: Resting ECG Reason for Exam: weak, dizzy Patient Location: E HR:68 bpm ECG Measurements Heart Rate 68 AXIS NH 145 P 4 QRSd 72 QRS 37 QT 407 T 15 QTc 433 Conclusion Sinus rhythm, rate 68 No interval abnormalities No STEMI T wave inversion V1, no priors available for comparison
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
[2024-04-01 22:30] LABS: Abs Immature Grans 0.02 10^3/uL (0.0-0.06); Absolute Basophil Count 0.02 10^3/uL (0.0-0.2); Absolute Eosinophil Count 0.11 10^3/uL (0.0-0.7); Absolute Lymphocyte Count 2.01 10^3/uL (1.2-3.4); Absolute Monocyte Count 0.47 10^3/uL (0.1-0.8); Absolute Neutrophil Count 5.34 10^3/uL (1.2-6.7); Basophils % 0.3 %; Eosinophils % 1.4 %; HCT 35.5 % (36.0-46.0); HGB 11.8 g/dL (11.2-15.7); Immature Grans % 0.3 %; Lymphocytes % 25.2 %; MCH 32.1 pg (27.0-33.0); MCHC 33.2 % (32.0-36.0); MCV 97 fL (80-95); MPV 9.4 fL (8.0-11.0); Monocytes % 5.9 %; Neutrophils % 66.9 %; Platelet Count 225 10^3/uL (130-400); RBC 3.68 10^6/uL (3.93-5.22); RDW 12.9 % (11.7-14.6); RDW-SD 45.8 fL; WBC 7.97 10^3/uL (4.4-10.8)
[2024-04-01] MEDS: Ondansetron 4 MG/2 ML VIAL IVP (22:30)
[2024-04-01 22:41] LABS: Prothrombin Time 9.8 sec (9.1-11.1)
[2024-04-01] MEDS: Normal Saline - Diluent 50 ML VIAL IJ (22:46)
[2024-04-01] MEDS: Omnipaque 350 MG/ML 100 ML BTL 70 ML IJ (22:48)
[2024-04-01 22:53] LABS: ALT 20 U/L (14-59); AST 22 U/L (15-37); Alkaline Phosphatase 75 U/L (46-116); BUN 35 mg/dL (7-18); CREATININE 1.8 mg/dL (0.55-1.02); Calcium 9.7 mg/dL (8.5-10.1); Chloride 106 mmol/L (98-107); Estimated GFR 28.31 (mL/min/1.73m2); Glucose 146 mg/dL (74-106); Magnesium 1.6 mg/dL (1.8-2.4); Potassium 4.4 mmol/L (3.5-5.1); Sodium 142 mmol/L (136-145); Total Protein 7.6 g/dL (6.4-8.2); Troponin I 7 ng/L (<or=51)
--- NOTE | 2024-04-01 23:07 | DI.CT_ITS ---
Exam(s) CT BRAIN NECK CTA EXAM: CT BRAIN NECK CTA CLINICAL HISTORY: Sudden vertigo, vomiting. TECHNIQUE: Imaging Protocol: Axial CT angiography was performed with multi-slice acquisition and mu lti-planar and MIP reconstructions. CONTRAST MATERIAL: Intravenous: Omnipaque 350 Contrast volume:100 ml COMPARISON: No exams were available for comparison FINDINGS: CT Head W/O and W contrast: Ventricles and Extra axial spaces: Normal in size and morphology for the patient's age. Hemorrhage: None. Cerebral parenchyma: No evidence of acute infarct or mass. Mild atrophy. Mild white matter changes of small vessel disease. Midline shift: None. Brainstem/Cerebellum: No acute findings.. Calvarium: Normal. Visualized Paranasal sinuses/Mastoids: Clear. Soft Tissues: Unremarkable. Enhancement: Normal. CTA Brain W: Internal Carotid Arteries: Petrous: Normal. Cavernous: Mild mural calcification. No stenosis. Cerebral: Normal. Middle Cerebral Arteries: Right: No aneurysm, occlusion or significant stenosis. Left: No aneurysm, occlusion or significant stenosis. Anterior Cerebral Arteries: Right: No aneurysm, occlusion or significant stenosis. Left: No aneurysm, occlusion or significant stenosis. Posterior cerebral Arteries: Right: Terminates in PICA. No aneurysm, occlusion or significant stenosis. Left: No aneurysm, occlusion or significant stenosis. Vertebral Arteries: Right: No aneurysm, occlusion or significant stenosis. Left: No aneurysm, occlusion or significant stenosis. Basilar Artery: No aneurysm, occlusion or significant stenosis. CTA Neck W: Common Carotid: Right: Minimal plaque at bulb. No dissection, occlusion or significant stenosis. Left: No dissection, occlusion or significant stenosis. External Carotid: Right: No dissection, occlusion or significant stenosis. Left: No dissection, occlusion or significant stenosis. Internal Carotid: Right: No dissection, occlusion or significant stenosis. Left: No dissection, occlusion or significant stenosis. Vertebral Artery: Right: Hypoplastic. Terminates as PICA. No dissection, occlusion or significant stenosis. Left: No dissection, occlusion or significant stenosis. Lung Apices: No acute findings. Bones: No acute abnormality. Ups advanced degenerative changes greatest at C5-6 where there is a pro minent osteophyte projecting posteriorly.. There is bilateral neural foraminal narrowing and moderat e central canal stenosis. Soft Tissues: Normal. IMPRESSION: 1. CTA brain: Normal CTA examination of the [place]. 2. Head CT: Unremarkable CT Head. 3. CTA neck: Minimal plaque at the right common carotid bulb, otherwise normal CTA examination of the neck. RADIATION DOSE DELIVERED: 1,960.88mGy.cm Total DLP DATA REPOSITORY: All CT scans at this facility are submitted to the National Radiology Data Registry (NRDR) Dose Index Registry (DIR) with the [employer] (ACR). RADIATION OPTIMIZATION: All CT scans at this facility use at least one of these dose optimization te chniques: automated exposure control; mA and/or kV adjustment per patient size (includes targeted exa ms where dose is matched to clinical indication); or iterative reconstruction.
[2024-04-01 23:17] LABS: Bilirubin, Total 0.28 mg/dL (0.2-1.0); Lipase 64 U/L (<78)
[2024-04-01] MEDS: MAGNESIUM SULFATE 2 GM/50 ML BAG IV_INF (23:17)
[2024-04-01] MEDS: Lactated Ringers 500 ML IV (23:18)
--- NOTE | 2024-04-01 23:23 | DI.VRAD_ITS ---
PROCEDURE INFORMATION: Exam: CTA Head Without And With Contrast, Arteriography Exam date and time: 04/01/2024 10:47 PM Age: 78 years old Clinical indication: Stroke-like symptoms; Other: Sudden vertigo, vomiting TECHNIQUE: Imaging protocol: Computed tomographic angiography of the head without and with contrast. Exam focused on the arteries. 3D rendering (Not supervised by radiologist): MIP and/or 3D reconstructed images were created by the technologist. Contrast material: OMNIPAQUE 250; Contrast volume: 70 ml; Contrast route: INTRAVENOUS (IV); Other technique: STROKE PROTOCOL was implemented. COMPARISON: No relevant prior studies available. FINDINGS: ANTERIOR CIRCULATION: Right internal carotid artery: Intracranial segment is patent with no significant stenosis or occlusion. No aneurysm. Right middle cerebral artery: No occlusion or significant stenosis. No aneurysm. Right anterior cerebral artery: No occlusion or significant stenosis. No aneurysm. Left internal carotid artery: Intracranial segment is patent with no significant stenosis. No aneurysm. Left middle cerebral artery: No occlusion or significant stenosis. No aneurysm. Left anterior cerebral artery: No occlusion or significant stenosis. No aneurysm. POSTERIOR CIRCULATION: Right vertebral artery: Terminates as right PICA. No aneurysm. Left vertebral artery: No occlusion or significant stenosis. No aneurysm. Basilar artery: No occlusion or significant stenosis. No aneurysm. Right posterior cerebral artery: No occlusion or significant stenosis. No aneurysm. Left posterior cerebral artery: No occlusion or significant stenosis. No aneurysm. HEAD: Brain: Normal. No hemorrhage. Unremarkable white matter. No mass effect. Cerebral ventricles: Normal. No ventriculomegaly. Bones: Unremarkable. No acute fracture. Paranasal sinuses: Visualized sinuses are normal. No fluid levels. Mastoid air cells: Visualized mastoids are normal. No mastoid effusion. Soft tissues: Unremarkable. IMPRESSION: 1. No large vessel occlusion. 2. Unremarkable CT head. ASSESSMENT: ASPECTS ([place] Stroke Program Early CT Score) is 10. PROCEDURE INFORMATION: Exam: CTA Neck Without And With Contrast Exam date and time: 04/01/2024 10:47 PM Age: 78 years old Clinical indication: Stroke-like symptoms; Other: Sudden vertigo, vomiting TECHNIQUE: Imaging protocol: Computed tomographic angiography of the neck without and with contrast. Exam focused on the cervical segments of the vasculature. 3D rendering (Not supervised by radiologist): MIP and/or 3D reconstructed images were created by the technologist. Contrast material: OMNIPAQUE 250; Contrast volume: 70 ml; Contrast route: INTRAVENOUS (IV); COMPARISON: No relevant prior studies available. FINDINGS: Right common carotid artery: No stenosis. No dissection or occlusion. Right internal carotid artery: No stenosis of the extracranial segment. No dissection or occlusion. Right external carotid artery: No occlusion or stenosis of the origin. Left common carotid artery: No stenosis. No dissection or occlusion. Left internal carotid artery: No stenosis of the extracranial segment. No dissection or occlusion. Left external carotid artery: No occlusion or stenosis of the origin. Right vertebral artery: Hypoplastic right vertebral artery which terminates as a right PICA, a normal anatomic variant. Left vertebral artery: No stenosis. No dissection or occlusion. Right subclavian artery: Aberrant right subclavian artery. Soft tissues: Normal. No significant soft tissue swelling. Bones/joints: No acute fracture. 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 IMPRESSION: No vascular occlusion or stenosis in the neck. Additional findings as described. REFERENCES: NASCET CRITERIA. The degree of stenosis in the cervical segment of the internal carotid artery is based on NASCET criteria. Normal is no stenosis. Mild is less than 50% stenosis. Moderate is 50-69% stenosis. Severe is 70% to 99% stenosis. Total occlusion is no detectable patent lumen. Dictated and Authenticated by: Tiffanie Perkins MD. Orderin [facility]. Fredy Almendarez MD
[2024-04-01] MEDS: Meclizine 25 MG TAB PO (23:43)
[2024-04-02] VITALS (12 sets, daily range): BP systolic 91–136; BP diastolic 53–76; PULSE 58–81; RESP 8–25; TEMP 36.1–36.8; O2SAT 94–100
[2024-04-02 00:20] LABS: Troponin I 7 ng/L (<or=51)
--- NOTE | 2024-04-02 00:25 | W.EDPROG ---
Date of service: 04/02/24 Time of Service: 00:25 Medical Decision Making This patient was signed out to me. Please see previous notes for H&P and initial eval. In brief, 78yo F presenting with acute vertigo and vomiting onset around 1630. Symptoms have improved somewhat while the in ED. Laboratory workup and CTA head/neck without findings to explain patient's symptoms. Signed out pending teleneurology evaluation. Teleneuro evaluated patient (see their note for details); advised MRI and starting baby ASA. On my assessment pt awake, alert, reports symptoms are still present but have improved since arrival to the ED. Discussed with [facility] hospitalist Dr. Hart; pt accepted to medicine service for further workup and management. Quality:SDOH Health Related Social Needs: Health related social needs details none Discharge Plan Disposition Patient Disposition: Admit to [facility] Condition: Serious Discharge Details Chief Complaint: Nausea/Vomit/Diar Clinical Impression: Vertigo, Nausea Primary Care Provider: Buzz John ED Provider: Natalya Hermosillo Meds and New Rx's Prescriptions: No Action nitrofurantoin monohyd/m-cryst 100 mg capsule 100 mg PO BID Qty: 10 0RF Rx Instructions: Take 1 tablet by mouth with food twice a day for 5 days cholecalciferol (vitamin D3) [Vitamin D3] 400 UNIT tablet 400 unit PO DAILY Tums Dual Action (famotidine) 1 EACH tablet,chewable 1 tab PO DAILY Rx Instructions: 750 mg multivitamin [Daily Multi-Vitamin] 1 EACH tablet 1 ea PO DAILY acetaminophen 500 MG tablet 1,000 mg PO daily prn (DME) OneTouch Ultra Test Strip See Rx Instructions .Route Qty: 100 3RF Rx Instructions: test once/day (DME) lancets [facility] [place] See Rx Instructions .ROUTE .MEDSUPPLY Qty: 100 4RF Rx Instructions: Check blood sugar once a day lisinopril 5 mg tablet 5 mg PO DAILY Qty: 90 3RF glipizide 2.5 mg tablet extended release 24hr 2.5 mg PO DAILY Qty: 90 3RF metformin 500 mg tablet 500 mg PO BID Qty: 180 3RF Rx Instructions: simvastatin 10 mg tablet 10 mg PO DAILY Qty: 90 4RF
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
[2024-04-02 02:53] LABS: Troponin I 5 ng/L (<or=51)
--- NOTE | 2024-04-02 05:49 | W.PC.ACHO ---
Registration Status: Primary Language: Preferred Language: ED Information & Data Chief Complaint Nausea/Vomit/Diar 04/01/24 22:15 Triage Note vomiting and dizziness since 04/01/24 21:23 this evening. state she had a Murphy sandwich from a resturant with Greek fries. state she weak Medical / Surgical History (Last Reviewed 04/02/24 @ 02:00 by Rishi Hart) Hypertension Diabetic retinopathy Hyperlipidemia Gastritis Diabetes (Last Reviewed 04/02/24 @ 02:00 by Rishi Hart) nasal polypectomy Ligation of fallopian tube Extraction of cataract Most Recent Vital Signs Temperature 36.5 C 04/02/24 05:15 Temperature Source Oral 04/01/24 21:40 Pulse 76 04/02/24 05:15 Pulse Rhythm Regular 04/02/24 05:02 Pulse 77 04/02/24 00:41 Respiratory Rate 18 04/02/24 05:15 Respiratory Effort Normal, Non-Labored 04/02/24 05:02 Respiratory Depth Normal 04/02/24 05:02 Respiratory Pattern Normal 04/02/24 05:02 Blood Pressure 127/76 04/02/24 05:15 Blood Pressure Mean 86 04/02/24 00:41 Pulse Oximetry 96 04/02/24 05:15 Oxygen Delivery Method Room Air 04/02/24 05:15 Oxygen Flow Rate 0 04/02/24 05:15 Pain Level 0 04/02/24 05:15 Allergies prednisone Allergy (Severe, Verified 04/01/24 21:32) SKIN RASH Sulfa (Sulfonamide Antibiotics) Allergy (Unknown, Verified 04/01/24 21:32) RASH aspirin Adverse Reaction (Intermediate, Verified 04/01/24 21:32) NOSE BLEEDS bisacodyl (From PEG-Prep) Adverse Reaction (Intermediate, Verified 04/01/24 21:32) Diarrhea prolonged diarrhea ibuprofen Adverse Reaction (Intermediate, Verified 04/01/24 21:32) impaired kidneys polyethylene glycol 3350 (From PEG-Prep) Adverse Reaction (Intermediate, Verified 04/01/24 21:32) Diarrhea prolonged diarrhea potassium chloride* (From PEG-Prep) Adverse Reaction (Intermediate, Verified 04/01/24 21:32) Diarrhea prolonged diarrhea sodium bicarbonate (From PEG-Prep) Adverse Reaction (Intermediate, Verified 04/01/24 21:32) Diarrhea prolonged diarrhea sodium chloride (From PEG-Prep) Adverse Reaction (Intermediate, Verified 04/01/24 21:32) Diarrhea prolonged diarrhea IV IV Catheter Type [Right Peripheral IV Forearm] IV Catheter Gauge [Right 18 Forearm] Diet Orders Category Date Time Status Diabetes Consistent CHO/Heart Healthy [DIET] Nutrition 04/02/24 Breakfast Active Diagnostics 04/02/24 04/02/24 04/02/24 Range/Units 05:35 04:56 02:20 WBC Pending (4.4-10.8) 10^3/uL RBC Pending (3.93-5.22) 10^6/uL Hgb Pending (11.2-15.7) g/dL Hct Pending (36.0-46.0) % MCV Pending (80-95) fL MCH Pending (27.0-33.0) pg MCHC Pending (32.0-36.0) % RDW Pending (11.7-14.6) % Plt Count Pending (130-400) 10^3/uL MPV Pending (8.0-11.0) fL Immature Gran % % Neutrophils % % Lymphocytes % % Monocytes % % Eosinophils % % Basophils % % Nucleated RBC % (0.0-0.3) % Absolute Neutrophils (1.2-6.7) 10^3/uL Absolute Lymphocytes (1.2-3.4) 10^3/uL Absolute Monocytes (0.1-0.8) 10^3/uL Absolute Eosinophils (0.0-0.7) 10^3/uL Absolute Basophils (0.0-0.2) 10^3/uL PT (9.1-11.1) sec INR (0.9-1.1) Sodium Pending (136-145) mmol/L Potassium Pending (3.5-5.1) mmol/L Chloride Pending (98-107) mmol/L Carbon Dioxide Pending (21.0-32.0) mmol/L Anion Gap Pending (3-11) mmol/L BUN Pending (7-18) mg/dL Creatinine Pending (0.55-1.02) mg/dL Est GFR (CKD-EPI 2020) Pending (mL/min/1.73m2) Glucose Pending (74-106) mg/dL Calcium Pending (8.5-10.1) mg/dL Magnesium Pending (1.8-2.4) mg/dL Total Bilirubin Pending (0.2-1.0) mg/dL AST Pending (15-37) U/L ALT Pending (14-59) U/L Alkaline Phosphatase Pending (46-116) U/L Troponin I 5 (<or=51) ng/L Total Protein Pending (6.4-8.2) g/dL Albumin Pending (3.4-5.0) g/dL Lipase (<78) U/L TSH Pending COVID-19 Source SARS-CoV-2 (PCR) Influenza Type A (PCR) Influenza Type B (PCR) RSV (PCR) 04/02/24 04/02/24 04/01/24 Range/Units 02:13 01:58 23:56 WBC (4.4-10.8) 10^3/uL RBC (3.93-5.22) 10^6/uL Hgb (11.2-15.7) g/dL Hct (36.0-46.0) % MCV (80-95) fL MCH (27.0-33.0) pg MCHC (32.0-36.0) % RDW (11.7-14.6) % Plt Count (130-400) 10^3/uL MPV (8.0-11.0) fL Immature Gran % % Neutrophils % % Lymphocytes % % Monocytes % % Eosinophils % % Basophils % % Nucleated RBC % (0.0-0.3) % Absolute Neutrophils (1.2-6.7) 10^3/uL Absolute Lymphocytes (1.2-3.4) 10^3/uL Absolute Monocytes (0.1-0.8) 10^3/uL Absolute Eosinophils (0.0-0.7) 10^3/uL Absolute Basophils (0.0-0.2) 10^3/uL PT (9.1-11.1) sec INR (0.9-1.1) Sodium (136-145) mmol/L Potassium (3.5-5.1) mmol/L Chloride (98-107) mmol/L Carbon Dioxide (21.0-32.0) mmol/L Anion Gap (3-11) mmol/L BUN (7-18) mg/dL Creatinine (0.55-1.02) mg/dL Est GFR (CKD-EPI 2020) (mL/min/1.73m2) Glucose (74-106) mg/dL Calcium (8.5-10.1) mg/dL Magnesium (1.8-2.4) mg/dL Total Bilirubin (0.2-1.0) mg/dL AST (15-37) U/L ALT (14-59) U/L Alkaline Phosphatase (46-116) U/L Troponin I Cancelled 7 (<or=51) ng/L Total Protein (6.4-8.2) g/dL Albumin (3.4-5.0) g/dL Lipase (<78) U/L TSH COVID-19 Source Pending SARS-CoV-2 (PCR) Pending Influenza Type A (PCR) Pending Influenza Type B (PCR) Pending RSV (PCR) Pending 04/01/24 Range/Units 22:25 WBC 7.97 (4.4-10.8) 10^3/uL RBC 3.68 L (3.93-5.22) 10^6/uL Hgb 11.8 (11.2-15.7) g/dL Hct 35.5 L (36.0-46.0) % MCV 97 H (80-95) fL MCH 32.1 (27.0-33.0) pg MCHC 33.2 (32.0-36.0) % RDW 12.9 (11.7-14.6) % Plt Count 225 (130-400) 10^3/uL MPV 9.4 (8.0-11.0) fL Immature Gran % 0.3 % Neutrophils % 66.9 % Lymphocytes % 25.2 % Monocytes % 5.9 % Eosinophils % 1.4 % Basophils % 0.3 % Nucleated RBC % 0.0 (0.0-0.3) % Absolute Neutrophils 5.34 (1.2-6.7) 10^3/uL Absolute Lymphocytes 2.01 (1.2-3.4) 10^3/uL Absolute Monocytes 0.47 (0.1-0.8) 10^3/uL Absolute Eosinophils 0.11 (0.0-0.7) 10^3/uL Absolute Basophils 0.02 (0.0-0.2) 10^3/uL PT 9.8 (9.1-11.1) sec INR 1.0 (0.9-1.1) Sodium 142 (136-145) mmol/L Potassium 4.4 (3.5-5.1) mmol/L Chloride 106 (98-107) mmol/L Carbon Dioxide 24.0 (21.0-32.0) mmol/L Anion Gap 12.0 H (3-11) mmol/L BUN 35 H (7-18) mg/dL Creatinine 1.8 H (0.55-1.02) mg/dL Est GFR (CKD-EPI 2020) 28.31 (mL/min/1.73m2) Glucose 146 H (74-106) mg/dL Calcium 9.7 (8.5-10.1) mg/dL Magnesium 1.6 L (1.8-2.4) mg/dL Total Bilirubin 0.28 (0.2-1.0) mg/dL AST 22 (15-37) U/L ALT 20 (14-59) U/L Alkaline Phosphatase 75 (46-116) U/L Troponin I 7 (<or=51) ng/L Total Protein 7.6 (6.4-8.2) g/dL Albumin 4.0 (3.4-5.0) g/dL Lipase 64 (<78) U/L TSH COVID-19 Source SARS-CoV-2 (PCR) Influenza Type A (PCR) Influenza Type B (PCR) RSV (PCR) Intake and Output - 24 Hour Total 04/01/24 21:21 thru 04/02/24 05:15 Intake Total 550 Balance 550 Weight 69.85 kg Intake: IV 550 Other: Urine Appearance Clear Stool Size Moderate Stool Characteristics Formed Emesis Description Retching Undigested Food Falls Risk Assessment History of Falls No History 04/02/24 05:02 Contributing Factors Unstable 04/02/24 05:02 Ambulatory Aids Independent 04/02/24 05:02 Tubes/Lines With any additional score 04/02/24 05:02 Gait Evaluation No gait disturbance 04/02/24 05:02 Cognition No cognitive impairment 04/02/24 05:02 Fall Total Score 23 04/02/24 05:02 Level of Risk Standard/Low Risk 04/02/24 05:02 Problems (Last Reviewed 04/02/24 @ 02:00 by Rishi Bourgeois) Hypomagnesemia (Acute) TIA (transient ischemic attack) (Acute) Vertigo (Acute) Hyperlipidemia (Chronic 06/18/12) Essential hypertension (Chronic 12/14/12) Diabetes mellitus (Chronic 06/18/12) v v v v v v v v v Sending and/or Receiving Nurses: Please use comment section below to note any information pertinent to the patient hand-off not included above. Information / Comments: Pt arrived to ED with nausea/dizziness after lying down in bed. CT negative, Teleneuro consult done in ED; recommend MRI and ASA. Pt declined ASA d/t previous epistaxis. Pt A&Ox3 and ind. Received 500ml bolus of LR and meclizine in ED. Awaiting MRI this morning. Report received from: Uzma Ngo RN
[2024-04-02 06:43] LABS: Bilirubin Negative (Negative); Blood Trace-intact (Negative); Clarity Sl Cloudy (Clear); Glucose Negative (Negative); Ketones Negative (Negative); Leukocyte Esterase Moderate (Negative); Nitrite Negative (Negative); Specific Gravity 1.015 (1.005-1.025); Urobilinogen 0.2 mg/dL (Up to 0.2)
[2024-04-02 06:50] LABS: Bacteria Moderate HPF (Negative); C & S Indicated? Yes; Casts Negative LPF (Negative); Crystals Negative HPF (Negative); Epithelial Cells Rare HPF (Negative); Mucus Negative (Negative); WBC 20-50 HPF (0-5)
[2024-04-02 07:17] LABS: HCT 35.6 % (36.0-46.0); HGB 11.8 g/dL (11.2-15.7); MCH 31.9 pg (27.0-33.0); MCHC 33.1 % (32.0-36.0); MCV 96 fL (80-95); MPV 9.4 fL (8.0-11.0); Platelet Count 210 10^3/uL (130-400); RDW 12.8 % (11.7-14.6); RDW-SD 45.7 fL; WBC 7.66 10^3/uL (4.4-10.8)
--- NOTE | 2024-04-02 07:23 | NUR.NOTE ---
Lab called to see if patient's covid swab had been done by ED. After reading chart, saw that the hospitalist put the order in at 0213.
[2024-04-02 07:42] LABS: ALT 21 U/L (14-59); AST 20 U/L (15-37); Albumin 3.6 g/dL (3.4-5.0); Alkaline Phosphatase 71 U/L (46-116); Anion Gap 8.1 mmol/L (3-11); BUN 32 mg/dL (7-18); Bilirubin, Total 0.35 mg/dL (0.2-1.0); CO2 26.9 mmol/L (21.0-32.0); CREATININE 1.7 mg/dL (0.55-1.02); Calcium 9.4 mg/dL (8.5-10.1); Chloride 107 mmol/L (98-107); Estimated GFR 30.32 (mL/min/1.73m2); Glucose 125 mg/dL (74-106); Magnesium 2.4 mg/dL (1.8-2.4); Potassium 4.6 mmol/L (3.5-5.1); Sodium 142 mmol/L (136-145); Total Protein 7.1 g/dL (6.4-8.2)
[2024-04-02 07:50] LABS: TSH (W/Ref FT4) 1.56 uIU/mL (0.36-3.74)
[2024-04-02] MEDS: Normal Saline Flush 10 ML SYR IVP ×2 (08:30→21:10)
[2024-04-02 08:44] LABS: COVID-19 PCR Negative (Negative); Influenza A PCR Negative (Negative); Influenza B PCR Negative (Negative); RSV PCR Negative (Negative)
[2024-04-02 08:46] LABS: Source Nasopharynx
[2024-04-02] MEDS: Enoxaparin 30 MG/0.3 ML SYR SC (09:15)
[2024-04-02] MEDS: Cholecalciferol (Vitamin D3) 400 UNIT TAB PO (09:15)
[2024-04-02] MEDS: Meclizine 25 MG TAB PO ×2 (09:15→21:10)
[2024-04-02] MEDS: Multivitamin TAB 1 TAB PO (09:16)
[2024-04-02] MEDS: Lisinopril 5 MG TAB PO (09:17)
[2024-04-02] MEDS: Gadoterate meglumine 20 ML SYRINGE 14 ML IVP (11:29)
--- NOTE | 2024-04-02 12:00 | DI.MRI_ITS ---
Exam(s) MR BRAIN WO/W EXAM: MR BRAIN WO/W CLINICAL HISTORY: vertigo. TECHNIQUE: Multiplanar multisequence MRI of the brain was performed. CONTRAST MATERIAL: IV Contrast: 14 ML of Dotarem contrast administered. COMPARISON: CT CT BRAIN NECK CTA from 04/01/2024 FINDINGS: VENTRICLES AND EXTRA AXIAL SPACES: Normal in size and morphology for the patient's age. HEMORRHAGE: None. CEREBRAL PARENCHYMA: No focus of restricted diffusion to suggest acute infarct. No space-occupying le balbina identified. Mild atrophy consistent with the patient's age. Mild white matter changes consis tent with microvascular disease. BRAINSTEM/CEREBELLUM: Normal. CALVARIUM: Normal. ENHANCEMENT: No suspicious enhancement identified. VISUALIZED PARANASAL SINUSES/MASTOIDS: Clear. Orbits: Unremarkable. Pituitary: Not enlarged. Vasculature: Normal flow voids. IMPRESSION: Mild age-related changes, otherwise unremarkable MRI of the brain. DATA REPOSITORY:
[2024-04-02] MEDS: Aspirin 81 MG CHEW PO (16:57)
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
[2024-04-02] MEDS: Atorvastatin 40 MG TAB 80 MG PO (21:09)
[2024-04-02] MEDS: Acetaminophen 500 MG TAB 1000 MG PO (21:09)
[2024-04-03 03:19] VITALS: BP 105/61; PULSE 71; RESP 17; TEMP 36; O2SAT 92
[2024-04-03 06:17] VITALS: BP 96/61; PULSE 61; RESP 18; TEMP 35.8; O2SAT 95
[2024-04-03 07:05] LABS: Abs Immature Grans 0.01 10^3/uL (0.0-0.06); Absolute Basophil Count 0.03 10^3/uL (0.0-0.2); Absolute Eosinophil Count 0.21 10^3/uL (0.0-0.7); Absolute Lymphocyte Count 2.78 10^3/uL (1.2-3.4); Absolute Monocyte Count 0.47 10^3/uL (0.1-0.8); Absolute Neutrophil Count 1.98 10^3/uL (1.2-6.7); Basophils % 0.5 %; Eosinophils % 3.8 %; HCT 33.5 % (36.0-46.0); HGB 11.1 g/dL (11.2-15.7); Immature Grans % 0.2 %; Lymphocytes % 50.7 %; MCH 31.9 pg (27.0-33.0); MCHC 33.1 % (32.0-36.0); MCV 96 fL (80-95); MPV 9.7 fL (8.0-11.0); Monocytes % 8.6 %; Neutrophils % 36.2 %; Platelet Count 223 10^3/uL (130-400); RBC 3.48 10^6/uL (3.93-5.22); RDW 13.2 % (11.7-14.6); RDW-SD 47.3 fL; WBC 5.48 10^3/uL (4.4-10.8)
[2024-04-03 07:15] LABS: Anion Gap 7.9 mmol/L (3-11); BUN 42 mg/dL (7-18); CO2 27.1 mmol/L (21.0-32.0); CREATININE 1.8 mg/dL (0.55-1.02); Chloride 107 mmol/L (98-107); Estimated GFR 28.31 (mL/min/1.73m2); Glucose 141 mg/dL (74-106); Magnesium 2.1 mg/dL (1.8-2.4); Potassium 4.5 mmol/L (3.5-5.1); Sodium 142 mmol/L (136-145)
--- NOTE | 2024-04-03 08:00 | DI.US_ITS ---
APPROVED REPORT EXAM: Comprehensive 2D, Doppler, and color-flow Echocardiogram Patient Location: In-Patient Winding Operator: Lorene Gutierrez RT (R) (CT) RD Rhythm: NSR Indications: TIA Echo Enhancing Agent Agent(s) / Amount(s) Used: Agitated Saline 8.5 cc Conclusion Normal left ventricular wall thickness and chamber size. Ejection fraction is 65%. Wall motion is n ormal Normal right ventricular size and function Both atria are normal in size No intracardiac shunting is identified with injection of agitated saline There is no significant valvular disease identified Wall motion Left Ventricle The left ventricle is normal size. The left ventricular systolic function is normal. The left ventric ular ejection fraction is within the normal range. There is normal left ventricular wall thickness. T here is normal LV segmental wall motion. There is no ventricular septal defect visualized. No left ve ntricle thrombus noted on this study. LVEF is 65-70%. Right Ventricle The right ventricle is normal size. The right ventricular systolic function is normal. There is kathi l right ventricular wall thickness. Atria The left atrium size is normal. The right atrium size is normal. The interatrial septum is intact wit h no evidence for an atrial septal defect. Saline bubble contrast intravenous injection does not demo nstrate PFO. Aortic Valve Aortic valve is trileaflet. Aortic valve leaflets are mildly thickened. There is no aortic valvular s tenosis. There is trivial aortic insufficiency. Mitral Valve Mitral valve leaflets are thickened. No evidence of mitral valve stenosis. No Mitral Regurgitation. Tricuspid Valve The tricuspid valve is normal in structure. There is no tricuspid valve stenosis. Mild tricuspid regu rgitation. No apparent pulmonary hypertension. Pulmonic Valve The pulmonary valve is normal in structure. There is no pulmonic valvular stenosis. Trace pulmonic re gurgitation. Great Vessels The aortic root is normal in size. The pulmonary artery is normal. Ascending aorta is normal in calib er. IVC is normal in size and collapses >50% with inspiration. Pericardium There is no pericardial effusion. 2D Dimensions IVSD d PLAX 0.90 cm F: 0.6-1.0 Ao Root d 2.67 cm F: 2.7 - 3.3 LVPW d PLAX 0.72 cm F: 0.6 - 1.0 Ao Asc Diam d 2.81 cm F: 2.3 - 3.1 LVID d PLAX 3.85 cm F: 3.8 - 5.2 IVC Diam exp d SLAX 1.1 cm LVDs 2.49 cm F: 2.2 - 3.5 LV EF Teichholz 65.5 % FS 35.35 % LV EDV (Teich) 64.0 mL LV ESV (Teich) 22.1 mL M-Mode TAPSE 2.16 cm (M/F) >1.7 Auto EF LV EDV A4C 67.4 mL LV EDV A2C 82.5 mL LV EDV BP 74.9 mL LV ESV A4C 35.1 mL LV ESV A2C 35.4 mL LV ESV BP 35.4 mL LVEF(%) A4C 47.9 % LVEF(%) A2C 57.1 % LVEF(%) BP 52.8 % LV SV A4C 32.3 ml LV SV A2C 47.1 ml LV SV BP 39.5 ml LV CO A4C 2.1 L/min LV CO A2C 3.1 L/min LV CO BP 2.6 L/min HR A4C 66.55 BPM HR A2C 64.96 BPM LV EDV Index (BP) LV Strain Long Pk Overal Avg (s) 18.47 LA Volume LA Length A4C 4.3 cm LA Length A2C 3.4 cm LA Area A4C s 9.42 cm2 LA Area A2C s 7.65 cm2 LA Vol A4C A-L 17.33 mL LA Vol A2C A-L 14.48 mL LA Vol Biplane A-L 17.8 mL LA Vol/BSA A4C A-L LA Vol/BSA A2C A-L LA Vol/BSA BP A-L 10.2 mL/m2 LA Vol A4C MOD 15.7 mL LA Vol A2C MOD 13.3 mL LA Vol BP MOD 16.2 mL LV Diastology MV E' medial 0.081 (>0.07 m/s) MV E Vmax 0.89 (0.4-1.3 m/s) MV E/E' MED 10.91 (<14) MV A Vmax 0.80 (0.4-1.3 m/s) E/A Ratio 1.1 Aortic Valve LVOT Vmax 0.76 m/s LVOT Peak Grad 2.3 mmHg LVOT VTI 0.180 m LVOT Mean Grad 1.3 mmHg LVOT SV 55.16 mL LVOT Diam s 1.95 cm Mitral Valve MV DT 165 (160-240 msec) Tricuspid Valve RA Pressure 3.00 mmHg TR Vmax 2.31 m/s TV S' 0.18 m/s TR Peak Grad 21.3 mmHg RVSP (TR) 24.4 mmHg
[2024-04-03] MEDS: Cholecalciferol (Vitamin D3) 400 UNIT TAB PO (08:23)
[2024-04-03] MEDS: Meclizine 25 MG TAB PO (08:24)
[2024-04-03] MEDS: Famotidine 20 MG TAB 10 MG PO (08:24)
[2024-04-03] MEDS: Multivitamin TAB 1 TAB PO (08:24)
[2024-04-03] MEDS: Aspirin 81 MG CHEW PO (08:24)
[2024-04-03] MEDS: Enoxaparin 30 MG/0.3 ML SYR SC (08:26)
[2024-04-03 08:32] VITALS: BP 94/59
--- NOTE | 2024-04-03 10:31 | PDOC.CMPRO ---
Date of service: 04/03/24 Time of Service: 10:32 Care Management Progress Note Discharge Anticipated Barriers to Discharge: None Identified Patient/Family Education Needs: Review discharge instructions, discuss Ask Me Three Transportation: Private vehicle Plan: Anticipate Sarah will discharge home via private vehicle tomorrow if medically ready. Pt will follow up with her PCP and community providers. No new services are anticipated at this time. CM will follow. Social Determinants of Health Screening Will the Patient Participate in the Screening?: Declined to provide
[2024-04-03 12:07] VITALS: BP 101/56; PULSE 71; RESP 15; TEMP 36.6; O2SAT 98
[2024-04-03] MEDS: MAGNESIUM SULFATE 1 GM/100 ML BAG IV_INF (12:12)
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
--- NOTE | 2024-04-03 14:42 | PDOC.CMDIS ---
Date of service: 04/03/24 Time of Service: 14:42 LACE Index Scoring Tool Questions: Length of Stay (in days): 1 Was the patient admitted via the E.D.?: Yes Comorbidities: Diabetes w/o Complication E.D. Visits: 1 Answers: Total Score: 6 Risk of Readmission: Low Risk Care Management Discharge Plan Reason for Hospitalization: TIA with Vertigo Discharge Plan: Sarah is discharged home via private vehicle with family. No new services are ordered prior to discharge. Sarah with follow up with her PCP and discharge plan of care as directed. Patient/Family Education Needs: Review discharge instructions, limitations, medications and plan to follow up with community providers. Discuss ask me three. SDOH Health Related Social Needs: Health related social needs details none
--- NOTE | 2024-04-03 15:23 | CHAPLAIN ---
Sarah was resting in bed when I visited. I explained my role and offered support. Her (?) was with her. She asked for ice cream for both of them which I was able to get after checking with Sarah's nurse.
== END 2024-04-03 15:07 | disposition home or self-care (01) ==
LOC: ER 04-02 02:56 → EDHOLD 04-02 04:31 → MS 04-02 04:54
PROVIDERS: Emergency Medicine; Admitting Provider Family Medicine; Emergency Provider Student in an Organized Health Care Education/Training Program; PCP Family Medicine; Responsible Provider Nurse Practitioner Family; Visit Provider Family Medicine
DX: G45.9 Transient cerebral ischemic attack, unspecified (principal); E83.42 Hypomagnesemia; I12.9 Hypertensive chronic kidney disease with stage 1 through stage 4 chronic kidney disease, or unspecified chronic kidney disease; N18.4 Chronic kidney disease, stage 4 (severe); E11.22 Type 2 diabetes mellitus with diabetic chronic kidney disease; E78.2 Mixed hyperlipidemia; H81.4 Vertigo of central origin; R11.0 Nausea; F43.20 Adjustment disorder, unspecified; Z87.891 Personal history of nicotine dependence; E11.319 Type 2 diabetes mellitus with unspecified diabetic retinopathy without macular edema; K29.70 Gastritis, unspecified, without bleeding
CPT/HCPCS: 00123; 36415; 70496; 70498; 70553; 80048; 80053; 83690; 85027; 87077; 87637; 93005; 93306; 96365; 96366; 96372; 96375; 99285; 81003; 81015; 83735; 84443; 84484; 85025; 85610; 87086; 87186; 93010; 99223; 99239; G0378; J1650; J1815; J2405; J3475; J3490

== ENCOUNTER 2024-09-24 10:19 | Outpatient (CLI) | payer MEDICARE, SELFPAY ==
[2024-09-24 13:20] LABS: Calculated LDL 54 mg/dL (<100); Cholesterol 129 mg/dL (<200); Estimated GFR 32.40 (mL/min/1.73m2); HDL Cholesterol 52 mg/dL (>or=50); Triglyceride 118 mg/dL (<150); Vitamin B12 653 pg/mL (193-986)
== END 2024-09-24 10:20 | disposition home or self-care (01) ==
LOC: LOS 10:19
PROVIDERS: PCP Family Medicine; Referring Provider Family Medicine; Visit Provider Family Medicine
DX: D64.9 Anemia, unspecified (principal); E78.5 Hyperlipidemia, unspecified; Z13.220 Encounter for screening for lipoid disorders; I10 Essential (primary) hypertension
CPT/HCPCS: 36415; 80061; 82565; 82607

== ENCOUNTER 2024-10-04 00:31 | Outpatient (CLI) | payer MEDICARE, SELFPAY ==
--- NOTE | 2024-10-04 12:51 | DI.MAMMO_ITS ---
Exam(s) MAMMO SCREENING EXAM: MAMMO SCREENING CLINICAL HISTORY: screening,z12.39. TECHNIQUE: Bilateral full field digital CC and MLO mammographic images were obtained with 3D tomosynthesis and utilizing computer aided detection (CAD). COMPARISON: Prior mammograms were reviewed. FINDINGS: There has been no significant change in the appearance and distribution of the fibroglandular tissue. Mild further increase in number of benign secretory-type calcifications noted in both breasts. There are no new spiculated masses nor new malignant appearing microcalcification groups. Asymmetric density anteriorly in the left breast is unchanged from at least 2016. There is no significant architectural distortion nor skin thickening-retraction. IMPRESSION: Benign findings. No radiographic evidence of malignancy. BI-RADS Category 2 - Benign Findings Breast Density - Category B - There are scattered areas of fibroglandular density. Breast density Category C or D implies that the patient has dense breast tissue. Dense breast tissue can make it harder to find cancer on a mammogram. Dense breast tissue is also associated with an increased risk of breast cancer. This information about the result of the mammogram report was provided to the patient to raise their awareness. Use this report when you speak with the patient about their risks for breast cancer, which includes their family history. At that time, you may recommend additional screening tests (Ultrasound or MRI) as these tests may add significant information. A negative radiographic report should not delay biopsy if a dominant or clinically suspicious mass is present. Up to ten percent of cancers are not identified on mammography. A negative report may reinforce clinical impression. Adenosis and dense breasts may obscure an underlying neoplasm. False positive reports average 6 to 10%. Patient will receive a letter notifying them of these results.
== END 2024-10-04 00:51 ==
LOC: DI 00:31
PROVIDERS: PCP Family Medicine; Visit Provider Family Medicine
DX: Z12.31 Encounter for screening mammogram for malignant neoplasm of breast (principal); R92.323 Mammographic fibroglandular density, bilateral breasts
CPT/HCPCS: 77063; 77067